=== PATIENT | male | born 1950 | race Caucasian/White ===

== ENCOUNTER 2017-08-21 21:25 | Inpatient (IN) | payer OTHER ==
[~2017-08-21] VITALS: Ht 175.3 cm; Wt 93.1 kg
[2017-08-21] MEDS ORDERED: ASPIRIN 81 MG TAB.CHEW PO ONE (22:00)
[2017-08-21 22:02] LABS: BASO # 0.1 x10^3/uL (0.0-0.2); BASO % 1 % (0-3); EOS # 0.3 x10^3/uL (0.0-0.7); EOS % 4 % (0-3); LYMPH # 2.2 x10^3/uL (1.0-4.8); LYMPH % 26 % (24-48); MEAN CORPUSCULAR HEMOGLOBIN 29 pg (25-35); MEAN CORPUSCULAR HGB CONC 34 g/dL (31-37); MEAN CORPUSCULAR VOLUME 86 fL (79-100); MONO # 0.7 x10^3/uL (0.0-1.1); MONO % 9 % (0-9); NEUT # 5.2 x10^3uL (1.8-7.7); NEUT % 62 % (31-73); PLATELET COUNT 278 x10^3/uL (140-400); RED BLOOD COUNT 4.79 x10^6/uL (4.30-5.70); RED CELL DISTRIBUTION WIDTH 13.8 % (11.5-14.5); WHITE BLOOD COUNT 8.5 x10^3/uL (4.0-11.0)
--- NOTE | 2017-08-21 22:08 | EKG ---
[address] [address] Test Date: 2017-08-21 Test Time: 21:32:24 Pat Name: SABINO PARDO Department: Room: Gender: M [employer]: : 1950 Requested By: JENNIE SPANN Order Number: [id number] Reading MD: Mau Reyes MD Measurements Intervals [place] Rate: 83 P: 25 CA: 152 QRS: 54 QRSD: 112 T: 62 QT: 380 QTc: 452 Interpretive Statements SINUS RHYTHM NON-SPECIFIC ST/T CHANGES Electronically Signed On 08-26-2017 16:09:25 CDT by Mau Reyes MD
[2017-08-21 22:13] LABS: ALBUMIN 3.4 g/dL (3.4-5.0); ALBUMIN/GLOBULIN RATIO 0.8 (1.0-1.7); CALCIUM 9.4 mg/dL (8.5-10.1); CREATININE 1.1 mg/dL (0.7-1.3); TOTAL PROTEIN 7.8 g/dL (6.4-8.2)
[2017-08-21 22:14] LABS: GFR 67.4; POTASSIUM 3.7 mmol/L (3.5-5.1); TOTAL BILIRUBIN 0.3 mg/dL (0.2-1.0)
[2017-08-21] MEDS ORDERED: ONDANSETRON PF 4 MG/2 ML VIAL. IV PRN (23:30)
[2017-08-21] MEDS ORDERED: MORPHINE SULFATE 4 MG/ML DISP.SYRIN. IV PRN (23:30)
[2017-08-21] MEDS ORDERED: NITROGLYCERIN SUBLINGUAL 0.4 MG BOTTLE OF 25. SL PRN (23:30)
[2017-08-22] VITALS (7 sets, daily range): BP systolic 105–167; BP diastolic 57–94
[2017-08-22] MEDS ORDERED: LISI1TAB3 PO (02:40)
[2017-08-22] MEDS ORDERED: OMEP20CA9 PO (02:40)
[2017-08-22] MEDS ORDERED: GLIP10TA PO (02:40)
[2017-08-22] MEDS ORDERED: METF500T9 PO (02:40)
[2017-08-22] MEDS ORDERED: SITA100T PO (02:40)
[2017-08-22] MEDS ORDERED: ATOR20TA58 PO (02:40)
--- NOTE | 2017-08-22 04:03 | PHYS DOC ---
Past History Past Medical History: Diabetes, High Cholesterol, Hypertension Past Surgical History: Other Alcohol Use: None Drug Use: None Adult General Chief Complaint Chief Complaint: CHEST PAIN HPI HPI 66-year-old male with past medical history of hypertension high cholesterol and type 2 diabetes the treatment of which he is compliant with, now presents to the emergency department complaining of chest pain. Patient has never had any prior cardiac evaluation including stress test or cardiac catheterization. He has never seen a traffic manager. Patient reports mid chest pressure over the last 1-2 days which is exertional and associated with mild shortness of breath. No nausea vomiting or diaphoresis. No productive cough or fever. Pain is not reproducible with palpation or movement. Pain-free now Review of Systems Review of Systems Constitutional: Denies fever or chills [] Eyes: Denies change in visual acuity, redness, or eye pain [] HENT: Denies nasal congestion or sore throat [] Respiratory: Denies cough or shortness of breath [] Cardiovascular: No additional information not addressed in HPI [] GI: Denies abdominal pain, nausea, vomiting, bloody stools or diarrhea [] : Denies dysuria or hematuria [] Musculoskeletal: Denies back pain or joint pain [] Integument: Denies rash or skin lesions [] Neurologic: Denies headache, focal weakness or sensory changes [] Endocrine: Denies polyuria or polydipsia [] All other systems were reviewed and found to be within normal limits, except as documented in this note. Current Medications Current Medications Current Medications Medications (Trade) Dose Ordered Sig/[facility] Start Time Stop Time Status Last Admin Dose Admin Aspirin (Children'S Aspirin) 324 mg 1X ONCE 08/21/17 22:00 08/21/17 22:01 DC 08/21/17 21:58 324 MG Allergies Allergies Allergies Coded Allergies Type Severity Reaction Last Updated Verified No Known Drug Allergies 08/21/17 No Physical Exam Physical Exam Constitutional: Well developed, well nourished, no acute distress, non-toxic appearance. [] HENT: Normocephalic, atraumatic, bilateral external ears normal, oropharynx moist, no oral exudates, nose normal. [] Eyes: PERRLA, EOMI, conjunctiva normal, no discharge. [] Neck: Normal range of motion, no tenderness, supple, no stridor. [] Cardiovascular:Heart rate regular rhythm, no murmur [] Lungs & Thorax: Bilateral breath sounds clear to auscultation [] Abdomen: Bowel sounds normal, soft, no tenderness, no masses, no pulsatile masses. [] Skin: Warm, dry, no erythema, no rash. [] Back: No tenderness, no CVA tenderness. [] Extremities: No tenderness, no cyanosis, no clubbing, ROM intact, no edema. [] Neurologic: Alert and oriented X 3, normal motor function, normal sensory function, no focal deficits noted. [] Psychologic: Affect normal, judgement normal, mood normal. [] Current Patient Data Vital Signs Vital Signs Date Time Temp Pulse Resp B/P (MAP) Pulse Ox O2 Delivery O2 Flow Rate FiO2 08/22/17 03:44 82 18 114/64 (81) 99 Room Air 08/22/17 00:45 97.0 Lab Results Laboratory Tests Test 08/21/17 21:47 White Blood Count 8.5 x10^3/uL (4.0-11.0) Red Blood Count 4.79 x10^6/uL (4.30-5.70) Hemoglobin 14.0 g/dL (13.0-17.5) Hematocrit 41.0 % (39.0-53.0) Mean Corpuscular Volume 86 fL (79-100) Mean Corpuscular Hemoglobin 29 pg (25-35) Mean Corpuscular Hemoglobin Concent 34 g/dL (31-37) Red Cell Distribution Width 13.8 % (11.5-14.5) Platelet Count 278 x10^3/uL (140-400) Neutrophils (%) (Auto) 62 % (31-73) Lymphocytes (%) (Auto) 26 % (24-48) Monocytes (%) (Auto) 9 % (0-9) Eosinophils (%) (Auto) 4 % (0-3) H Basophils (%) (Auto) 1 % (0-3) Neutrophils # (Auto) 5.2 x10^3uL (1.8-7.7) Lymphocytes # (Auto) 2.2 x10^3/uL (1.0-4.8) Monocytes # (Auto) 0.7 x10^3/uL (0.0-1.1) Eosinophils # (Auto) 0.3 x10^3/uL (0.0-0.7) Basophils # (Auto) 0.1 x10^3/uL (0.0-0.2) Sodium Level 140 mmol/L (136-145) Potassium Level 3.7 mmol/L (3.5-5.1) Chloride Level 102 mmol/L (98-107) Carbon Dioxide Level 27 mmol/L (21-32) Anion Gap 11 (6-14) Blood Urea Nitrogen 16 mg/dL (8-26) Creatinine 1.1 mg/dL (0.7-1.3) Estimated GFR (Cockcroft-Gault) 67.4 BUN/Creatinine Ratio 15 (6-20) Glucose Level 187 mg/dL (70-99) H Calcium Level 9.4 mg/dL (8.5-10.1) Total Bilirubin 0.3 mg/dL (0.2-1.0) Aspartate Amino Transferase (AST) 15 U/L (15-37) Alanine Aminotransferase (ALT) 35 U/L (16-63) Alkaline Phosphatase 112 U/L (46-116) Troponin I Quantitative 0.019 ng/mL (0-0.055) Total Protein 7.8 g/dL (6.4-8.2) Albumin 3.4 g/dL (3.4-5.0) Albumin/Globulin Ratio 0.8 (1.0-1.7) L EKG EKG EKG with normal sinus rhythm at 83 normal axis no STEMI interpreted by me Radiology/Procedures Radiology/Procedures Chest x-ray with chronic changes no acute disease no infiltrate or effusion interpreted by me[] Course & Med Decision Making Course & Med Decision Making Pertinent Labs and Imaging studies reviewed. (See chart for details) Signs and symptoms consistent with chest pain of suspected cardiac etiology. Patient pain-free and comfortable appearing. Aspirin given. Workup unremarkable including chest x-ray EKG and labs. Patient stable on multiple re-evaluations. Case discussed with Dr. Moreno hospitalist on-call is aware the history and findings and agrees with inpatient admission to his service [] Dragon Disclaimer Dragon Disclaimer This electronic medical record was generated, in whole or in part, using a voice recognition dictation system. Departure Departure: Impression: Primary Impression: Chest pain Disposition: ADMITTED INPATIENT Admitting Physician: Greg Moreno Condition: GOOD Referrals: ARNALDO SIMON (PCP) JENNIE SPANN MD Aug 22, 2017 04:03
[2017-08-22 04:20] LABS: BASO # 0.1 x10^3/uL (0.0-0.2); BASO % 1 % (0-3); EOS # 0.3 x10^3/uL (0.0-0.7); EOS % 4 % (0-3); HEMATOCRIT 37.7 % (39.0-53.0); HEMOGLOBIN 12.8 g/dL (13.0-17.5); LYMPH # 2.2 x10^3/uL (1.0-4.8); LYMPH % 30 % (24-48); MEAN CORPUSCULAR HEMOGLOBIN 29 pg (25-35); MEAN CORPUSCULAR HGB CONC 34 g/dL (31-37); MEAN CORPUSCULAR VOLUME 86 fL (79-100); MONO # 0.6 x10^3/uL (0.0-1.1); MONO % 9 % (0-9); NEUT # 4.1 x10^3uL (1.8-7.7); NEUT % 56 % (31-73); PLATELET COUNT 234 x10^3/uL (140-400); RED BLOOD COUNT 4.39 x10^6/uL (4.30-5.70); RED CELL DISTRIBUTION WIDTH 13.8 % (11.5-14.5); WHITE BLOOD COUNT 7.3 x10^3/uL (4.0-11.0)
[2017-08-22 04:31] LABS: CALCIUM 8.7 mg/dL (8.5-10.1); GFR 75.2; POTASSIUM 3.4 mmol/L (3.5-5.1)
[2017-08-22] MEDS ORDERED: POTASSIUM CHLORIDE 20 MEQ TABLET.ER. PO ONE (07:45)
--- NOTE | 2017-08-22 08:08 | RAD ---
Portable chest, 08/21/2017: History: Chest pain The heart size and pulmonary vascularity are normal. There is mild tortuosity of the thoracic aorta. No pulmonary infiltrate is seen. There is no evidence of pleural fluid. IMPRESSION: No acute cardiopulmonary abnormality is detected.
[2017-08-22] MEDS: LISINOPRIL 10 MG TABLET PO SCH (08:19)
[2017-08-22] MEDS: hydroCHLOROthiazide 12.5 MG CAPSULE PO SCH (08:19)
[2017-08-22] MEDS: LINAGLIPTIN 5 MG TABLET PO SCH (08:19)
[2017-08-22] MEDS: ATORVASTATIN CALCIUM 20 MG TABLET PO SCH (08:19)
[2017-08-22] MEDS ORDERED: metFORMIN XR 500 MG TAB.ER.24H PO SCH (09:00)
[2017-08-22] MEDS ORDERED: DEXTROSE 50% 25 GM / 50ML DISP.SYRIN. IV PRN (12:30)
--- NOTE | 2017-08-22 12:30 | HP ---
ADMIT DATE: 08/22/2017 HISTORY OF PRESENT ILLNESS: The patient is a 66-year-old male patient, who came to the Emergency Room complaining of recurrent episode of chest pain started about 3 weeks ago. Most time the pain comes when he is exerting himself, has never had any prior cardiac evaluation including stress test or cardiac catheterization. The chest pain lasts anything between 5-15 minutes, associated with exertion. Did complain of shortness of breath, but no nausea, no vomiting, no diaphoresis. No radiation. Recently the pain also comes at rest, therefore the patient came to the Emergency Room, was evaluated. His cardiac enzyme was slightly elevated at 0.019. His EKG showed he was in sinus rhythm at 83 beats per minute, no ST segment elevation or depression. The patient was admitted to the hospital to do 2 more sets of cardiac enzyme and check his lipid profile as well as consult the cardiology team for further evaluation and treatment. PAST MEDICAL HISTORY: Significant for type 2 diabetes mellitus, hypertension and hyperlipidemia. PAST SURGICAL HISTORY: Significant for bilateral cataract extraction, hernia repair and colonoscopy. ALLERGIES: He has no known drug allergies. MEDICATIONS: He is currently on following medications: Atorvastatin calcium 20 mg daily, lisinopril/hydrochlorothiazide 10/12.5 mg once a day, omeprazole 20 mg once a day, metformin 500 mg daily, sitagliptin phosphate 100 mg daily and glipizide 10 mg extended release 1 tablet daily. FAMILY HISTORY: He has two sisters and one brother. Older sister of stomach cancer. His younger brother of pneumonia and myocardial infarction. His younger sister is known to have coronary artery disease. His father at the age of 52 because of myocardial infarction. Mother at the age of 40 because of diabetes and gangrenous infection. SOCIAL HISTORY: He is , has 2 sons and 4 daughters. He quit smoking about 8 years ago. He does not drink alcohol or use any recreational drugs. 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 REVIEW OF SYSTEMS: The patient has bilateral hearing aid, underwent bilateral cataract extraction. Denied any nosebleeds, stuffy nose or postnasal drip. Denied any sore throat, sore tongue, toothache, hoarseness of voice or difficulty swallowing. Denied any nausea, vomiting, diarrhea or constipation. Denied any hematemesis, melena or hematochezia. Denied any dysuria, frequency or hematuria. He did complain of chest pain and shortness of breath. Denied any orthopnea or paroxysmal dyspnea. Denied any cough, phlegm or hemoptysis. Denied chills, rigors or fever. PHYSICAL EXAMINATION: GENERAL: On examining him, he looked well and was clearly in no apparent respiratory distress, no pallor, jaundice, cyanosis, or thyromegaly. No jugular venous distension. No lower limb edema. VITAL SIGNS: His heart rate was 86, blood pressure 125/75, temperature was 97.9, respiratory rate was 18 and oxygen saturation was 96%. HEAD, EYES, EARS, NOSE AND THROAT: Showed normocephalic, atraumatic. NECK: Supple. HEART: Showed normal first and second heart sounds with no gallop, rub or murmur. CHEST: Clear to auscultation. No crepitation or rhonchi. ABDOMEN: Distended, soft, nontender. No guarding or rigidity. No organomegaly. All hernial orifice intact. Bowel sounds normal. NEUROLOGIC: He was awake, alert, hard of hearing, but all other cranial nerves are intact. EXTREMITIES: He moves extremities without difficulty, ambulates without assistance or assistive devices. LABORATORY DATA: On admission showed a white cell count of 8500, hemoglobin 14, hematocrit 41, MCV 86 and platelet count 278,000. His serum sodium was 140, potassium 3.7, chloride 102, bicarbonate 27, anion gap of 11, BUN 16, creatinine 1.1, estimated GFR was 67 mL per minute. His glucose was 187, calcium was 9.4. Total bilirubin, AST, ALT, alkaline phosphatase are normal. His total protein was 7.8, albumin was 3.4. IMPRESSION AND PLAN: In summary, this is a 66-year-old was admitted with recurrent episode of mostly exertional chest pain. First set of cardiac enzyme showed that the troponin to be less than 0.019. Will have 2 more sets of cardiac enzymes, check his fasting lipid profile and consult the charging plug placer. MARA MONTEMAYOR MD DR: ERAN/roge JOB#: [id number] / [id number]
[2017-08-22] MEDS: INSULIN ASPART 300 UNITS/3 ML INSULN.PEN SQ SCH (12:50)
--- NOTE | 2017-08-22 22:18 | PN ---
DATE: 08/22/2017 SUBJECTIVE: The patient is resting, slightly propped up in bed, in no apparent respiratory distress. On questioning him, he denied any further episode of chest pain or shortness of breath. The patient has 3 sets of cardiac enzymes, which probably ruled out myocardial infarction. His EKG was unremarkable and the plan is to wait for the Cardiology evaluation, did have an echocardiogram, the result of which is still pending. PHYSICAL EXAMINATION: GENERAL: When I examined him today, he looked well and was clearly in no apparent respiratory distress. He was pale, but no jaundice, cyanosis, or thyromegaly. No jugular venous distension. No limb edema. VITAL SIGNS: His heart rate was 86, blood pressure 136/60, temperature was 97.9, respiratory rate was 16, and oxygen saturation was 95%. The rest of clinical examination is unremarkable, has not really changed. PLAN: We will again check his fasting lipid profile and await cardiology evaluation. MARA MONTEMAYOR MD DR: ERAN/roge JOB#: [id number] / [id number]
[2017-08-23 04:09] LABS: HEMOGLOBIN A1C 7.6 % (4.8-5.6)
[2017-08-23 05:15] VITALS: BP 130/70
[2017-08-23] MEDS ORDERED: PANTOPRAZOLE 40 MG TABLET. PO SCH (07:30)
[2017-08-23] MEDS ORDERED: REGADENOSON 0.4 MG/5 ML DISP.SYRIN. IV ONE (07:30)
[2017-08-23] MEDS: INSULIN ASPART 300 UNITS/3 ML INSULN.PEN SQ SCH ×2 (08:00→12:00)
[2017-08-23] MEDS: ATORVASTATIN CALCIUM 20 MG TABLET PO SCH (09:00)
[2017-08-23] MEDS: hydroCHLOROthiazide 12.5 MG CAPSULE PO SCH (09:04)
[2017-08-23] MEDS: LINAGLIPTIN 5 MG TABLET PO SCH (09:04)
[2017-08-23] MEDS: LISINOPRIL 10 MG TABLET PO SCH (09:04)
[2017-08-23] MEDS ORDERED: NITROGLYCERIN SUBLINGUAL 0.4 MG BOTTLE OF 25. SL ONE (09:11)
[2017-08-23 10:31] VITALS: BP 143/82
--- NOTE | 2017-08-23 13:08 | RAD ---
MR#: [id number] Date of Study: 08/23/2017 Ordering Physician: MARA MONTEMAYOR, Referring Physician: JS DE LA ROSA Tech: RT Elizabeth DawkinsR) (N) APPROVED REPORT Test Type: Pharmacological Stress Nurse/Tech: RT Mariza (Rosendo) (N) Test Indications: chest pain Cardiac History: none Medications: see EHR Medical History: see EHR Resting Heart Rate: 76 bpm Resting Blood Pressure: 131/76mmHg Pretest Chest Pain: None Nurse/Tech Notes Dr. Rose was present for stress test Consent: The procedure was explained to the patient in lay terms. Informed consent was witnessed. Madhu eout was entered into [employer]. History and Stress Test performed by RT Mariza (R) (N) Pharm. Details Pharmacologic stress testing was performed using 0.4mg per 5ml of regadenoson given intravenously ove r 7-10 seconds. POST EXERCISE Max HR: 117 bpm Max Blood Pressure: 149/82mmHg Chest Pain: Yes. INTERPRETATION Stress EKG Conclusion: No evidence of stress induced EKG changes. Imaging Protocol IMAGE PROTOCOL: Rest Tc-99m/stress Tc-99m 1 day Rest: Stress: Viability: Radiopharm.Tc99m [id number] Sestamibi Dose11.5mCi 34mCi Duration 20min. 15min. Img Date 08/23/2017 08/23/2017 Inj-Img Cllu77tem. 60min. Rest Admin Site:IV - Left AntecubitalAdministrator: RT Mariza (R)(N) Stress Admin Site: IV - Left AntecubitalAdministrator: RT Mariza (Rosendo)(N) STRESS DATA End Diast. Vol.116.0mlAv. Heart Rate87.0bpm LVEDV index BSA2.0mlCardiac Output0.1L/min End Syst. Vol.48.0mlCO Index BSA5.9L/min LVESV index BSA1.0mlMyocardial Kmhn903.0g Eject. Yrahjlsj10.0% Stress Rates Pk. Fill Rate2.15EDV/secLVtime Pk. Fill 185.40msec Pk. Empty Rate2.72ESV/secLVtime Pk. Stuip152.42msec 1/3 Pk. Fill1.39EDV/sec Stress Scores Regional WT2.00Summed WT17.00 Regional WM0.00Summed WM6.00 LV Perfusion There is a moderate sized, moderate in intensity mostly lateral and fully reversible defect suggestiv e of impaired perfusion reserve. Wall Motion Normal wall motion. LV Perf. Quant 17 Seg. SSS9.00 17 Seg. SRS0.00 17 Seg. SDS9.00 Stress Defect Extent (% LAD)0.00Rest Defect Extent (% LAD)0.00Rev. Defect Extent (% LAD)0.00 Stress Defect Extent (% LCX) 63.80Rest Defect Extent (% LCX)0.00Rev. Defect Extent (% LCX)63.80 Stress Defect Extent (% RCA)0.00Rest Defect Extent (% RCA)0.00Rev. Defect Extent (% RCA)0.00 Stress Defect Extent (% MONY)12.80Rest Defect Extent (% MONY)0.00Rev. Defect Extent (% MONY)12.80 Other Information Quality:Average Risk Assessment: Moderate Risk Conclusion 1. No evidence of stress induced EKG changes. 2. Moderate lateral wall reversilbe defect - may be related to motion artifact. EF 59% 3. Motion artifact. 4. Moderate risk study. Signed by : Mau Reyes, Electronically Approved : 08/23/2017 13:07:34
--- NOTE | 2017-08-23 13:17 | PDOC2 ---
CONSULT Date of Admission DATE: 08/23/17 TIME: 13:16 Reason for Consult: cp Problem List Problems Medical Problems: (1) Chest pain Status: Acute History of Present Illness Mr Krueger is a 66-year-old male with a past medical history of hypertension, high cholesterol and type 2 diabetes. HE presented to the ED with complaints of chest pressure intermittently over the last couple days. He reports pain worse with exertion, better with rest and with associated dyspnea. he denies radiation, diaphoresis, nausea or vomiting. he denies recent illness, cough, fever or chills. he denies palpitations, congestive symptoms, lightheadedness or syncope. He denies any prior cardiac symptoms or evaluation. Past Medical History diabetes mellitus type 2, hypertension, hyperlipidemia. Past Surgical History bilateral cataract extraction, hernia repair, colonoscopy. Family History stomach cancer premature coronary disease in his father, at age 52, younger sister and 1 younger brother with [address]. His mother in her 40s due to complications from diabetes. Social History prior smoker, quit 8 years ago, no significant ETOH, no illicit drugs. 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 Current Medications Current Medications Aspirin (Children'S Aspirin) 324 mg 1X ONCE PO Last administered on 08/21/17at 21:58; Start 08/21/17 at 22:00; Stop 08/21/17 at 22:01; Status DC Ondansetron HCl (Zofran) 4 mg PRN Q4HRS PRN IV NAUSEA/VOMITING; Start 08/21/17 at 23:30; Stop 08/22/17 at 23:29; Status DC Morphine Sulfate (Morphine 4mg Syringe) 4 mg PRN Q2HR PRN IV PAIN; Start at 23:30; Stop 08/22/17 at 23:29; Status DC Nitroglycerin (Nitrostat) 0.4 mg PRN Q5MIN PRN SL CHEST PAIN; Start 08/21/17 at 23:30; Stop 08/22/17 at 23:29; Status DC Potassium Chloride (Klor-Con) 40 meq 1X ONCE PO Last administered on at 08:19; Start 08/22/17 at 07:45; Stop 08/22/17 at 07:46; Status DC Atorvastatin Calcium (Lipitor) 20 mg DAILY PO Last administered on 08/22/17at 08 :19; Start 08/22/17 at 09:00 Metformin HCl (Glucophage Xr) 500 mg DAILY PO Last administered on 08/22/17at 08 :20; Start 08/22/17 at 09:00; Stop 08/22/17 at 12:16; Status DC Glipizide (Glucotrol Er) 10 mg DAILY08 PO Last administered on 08/23/17at 09:04 ; Start 08/22/17 at 08:00 Lisinopril (Prinivil) 10 mg DAILY PO Last administered on 08/23/17at 09:04; Start 08/22/17 at 09:00 Pantoprazole Sodium (Protonix) 40 mg DAILYAC PO Last administered on 08/23/17at 09:04; Start 08/23/17 at 07:30 Linagliptin (Tradjenta) 5 mg DAILY PO Last administered on 08/23/17at 09:04; Start 08/22/17 at 09:00 Hydrochlorothiazide (Microzide) 12.5 mg DAILY PO Last administered on at 09:04; Start 08/22/17 at 09:00 Insulin Aspart (NovoLOG) 0-7 UNITS TIDWMEALS SQ Last administered on 08/23/17at 12:00; Start 08/22/17 at 17:00 Dextrose 12.5 gm PRN Q15MIN PRN IV SEE COMMENTS; Start 08/22/17 at 12:30 Regadenoson (Lexiscan) 0.4 mg 1X ONCE IV Last administered on 08/23/17at 08:57 ; Start 08/23/17 at 07:30; Stop 08/23/17 at 07:36; Status DC Nitroglycerin (Nitrostat) 0.4 mg STK-MED ONCE SL ; Start 08/23/17 at 09:11; Stop 08/23/17 at 09:12; Status DC Active Scripts Active Reported Atorvastatin Calcium 20 Mg Tablet 1 Tab PO DAILY Omeprazole 20 Mg Capsule.dr 1 Cap PO DAILY Glucotrol Xl (Glipizide) 10 Mg Tab.er.24 1 Tab PO DAILY Lisinopril-Hctz 10-12.5 Mg Tab (Lisinopril/Hydrochlorothiazide) 1 Each Tablet 1 Tab PO DAILY Januvia (Sitagliptin Phosphate) 100 Mg Tablet 1 Tab PO DAILY Metformin Hcl Er (Metformin Hcl) 500 Mg Tab.er.24h 1 Tab PO DAILY Allergies: Coded Allergies: No Known Drug Allergies (Unverified , 08/21/17) Review of System as per HPI General: Alert, Oriented X3, Cooperative, No acute distress HEENT: Atraumatic, EOMI Lungs: Clear to auscultation, Normal air movement Heart: Regular rate, Normal S1, Normal S2 Abdomen: Normal bowel sounds, Soft, No tenderness Extremities: No cyanosis, Normal pulses Neuro: Normal speech, Strength at 5/5 X4 ext Psych/Mental Status: Mental status NL, Mood NL VITALS Vital Signs Date Time Temp Pulse Resp B/P (MAP) Pulse Ox O2 Delivery O2 Flow Rate FiO2 08/23/17 10:31 97.7 92 20 143/82 (102) 95 Room Air Labs Laboratory Tests Test 08/21/17 21:47 08/22/17 01:00 08/22/17 03:55 08/22/17 07:47 White Blood Count 8.5 x10^3/uL (4.0-11.0) 7.3 x10^3/uL (4.0-11.0) Red Blood Count 4.79 x10^6/uL (4.30-5.70) 4.39 x10^6/uL (4.30-5.70) Hemoglobin 14.0 g/dL (13.0-17.5) 12.8 g/dL (13.0-17.5) Hematocrit 41.0 % (39.0-53.0) 37.7 % (39.0-53.0) Mean Corpuscular Volume 86 fL (79-100) 86 fL (79-100) Mean Corpuscular Hemoglobin 29 pg (25-35) 29 pg (25-35) Mean Corpuscular Hemoglobin Concent 34 g/dL (31-37) 34 g/dL (31-37) Red Cell Distribution Width 13.8 % (11.5-14.5) 13.8 % (11.5-14.5) Platelet Count 278 x10^3/uL (140-400) 234 x10^3/uL (140-400) Neutrophils (%) (Auto) 62 % (31-73) 56 % (31-73) Lymphocytes (%) (Auto) 26 % (24-48) 30 % (24-48) Monocytes (%) (Auto) 9 % (0-9) 9 % (0-9) Eosinophils (%) (Auto) 4 % (0-3) 4 % (0-3) Basophils (%) (Auto) 1 % (0-3) 1 % (0-3) Neutrophils # (Auto) 5.2 x10^3uL (1.8-7.7) 4.1 x10^3uL (1.8-7.7) Lymphocytes # (Auto) 2.2 x10^3/uL (1.0-4.8) 2.2 x10^3/uL (1.0-4.8) Monocytes # (Auto) 0.7 x10^3/uL (0.0-1.1) 0.6 x10^3/uL (0.0-1.1) Eosinophils # (Auto) 0.3 x10^3/uL (0.0-0.7) 0.3 x10^3/uL (0.0-0.7) Basophils # (Auto) 0.1 x10^3/uL (0.0-0.2) 0.1 x10^3/uL (0.0-0.2) Sodium Level 140 mmol/L (136-145) 138 mmol/L (136-145) Potassium Level 3.7 mmol/L (3.5-5.1) 3.4 mmol/L (3.5-5.1) Chloride Level 102 mmol/L (98-107) 103 mmol/L (98-107) Carbon Dioxide Level 27 mmol/L (21-32) 25 mmol/L (21-32) Anion Gap 11 (6-14) 10 (6-14) Blood Urea Nitrogen 16 mg/dL (8-26) 16 mg/dL (8-26) Creatinine 1.1 mg/dL (0.7-1.3) 1.0 mg/dL (0.7-1.3) Estimated GFR (Cockcroft-Gault) 67.4 75.2 BUN/Creatinine Ratio 15 (6-20) Glucose Level 187 mg/dL (70-99) 286 mg/dL (70-99) Calcium Level 9.4 mg/dL (8.5-10.1) 8.7 mg/dL (8.5-10.1) Total Bilirubin 0.3 mg/dL (0.2-1.0) Aspartate Amino Transf (AST/SGOT) 15 U/L (15-37) Alanine Aminotransferase (ALT/SGPT) 35 U/L (16-63) Alkaline Phosphatase 112 U/L (46-116) Troponin I Quantitative 0.019 ng/mL (0-0.055) 0.023 ng/mL (0-0.055) Total Protein 7.8 g/dL (6.4-8.2) Albumin 3.4 g/dL (3.4-5.0) Albumin/Globulin Ratio 0.8 (1.0-1.7) Nasal Screen MRSA (PCR) Negative (Negative) Hemoglobin A1c 7.6 % (4.8-5.6) Triglycerides Level 147 mg/dL (0-150) Cholesterol Level 102 mg/dL (0-200) LDL Cholesterol, Calculated 45 mg/dL (0-100) VLDL Cholesterol, Calculated 29 mg/dL (0-40) Non-HDL Cholesterol Calculated 74 mg/dL (0-129) HDL Cholesterol 28 mg/dL (40-60) Cholesterol/HDL Ratio 3.0 Glucose (Fingerstick) 221 mg/dL (70-99) Test 08/22/17 09:53 08/22/17 11:34 08/22/17 13:19 08/22/17 16:56 Troponin I Quantitative 0.018 ng/mL (0-0.055) Glucose (Fingerstick) 291 mg/dL (70-99) 178 mg/dL (70-99) 108 mg/dL (70-99) Test 08/22/17 19:47 08/23/17 08:58 08/23/17 11:57 Glucose (Fingerstick) 179 mg/dL (70-99) 177 mg/dL (70-99) 337 mg/dL (70-99) Images EKG sinus rhythm with non specific changes Assessment/Plan 1. chest pain consistent with exertional angina - Troponin mildly elevated but remains in the indeterminate range, no acute ischemic changes on EKG. Await echo and MPI this am. 2. hypertension - controlled on current medical therapy. 3. hyperlipidemia - continue statin therapy, check lipids. Await MPI results and if abnormal plan for cardiac cath. Problems: JANINE CHISHOLM SPLICER HELPER Aug 23, 2017 13:17
[2017-08-23 14:34] VITALS: BP 137/78
--- NOTE | 2017-08-23 21:38 | DS ---
DATE OF DISCHARGE: 08/23/2017 HISTORY OF PRESENT ILLNESS: The patient is a 66-year-old male patient who came to the hospital with a complaint of chest pain that has been going on for a month associated with exertion and most of the pain comes when he is exerting himself and has never had any prior cardiac evaluation including stress test or cardiac catheterization and basically was admitted to the Emergency Room, has had 3 sets of cardiac enzymes that were negative. His EKG showed that he was in sinus rhythm with no ST segment elevation or depression. He underwent nuclear stress test, which basically showed that there is a moderate size, moderate intensity, mostly lateral and fully reversible defect suggestive of impaired perfusion reserve and as did Dr. Stinson's recommendation, the patient will be [facility] with a view of cardiac catheterization tomorrow or not feasible Saturday. PHYSICAL EXAMINATION: GENERAL: When I examined him today, he looked well and was clearly in no apparent respiratory distress, pale, but no jaundice or cyanosis. No lymphadenopathy or thyromegaly. No jugular venous distension. No limb edema. VITAL SIGNS: His heart rate was 92, blood pressure was 143/82, temperature was 97.7, respiratory rate 20, and oxygen saturation was 95%. HEAD, EYES, EARS, NOSE AND THROAT: Normocephalic, atraumatic. NECK: Supple. HEART: Showed normal first and second heart sounds with no gallop, rub or murmur. CHEST: Clear to auscultation. No crepitation or rhonchi. ABDOMEN: Distended, soft, nontender. No guarding or rigidity. No organomegaly. Hernial orifices intact. Bowel sounds normal. NEUROLOGICAL: He was awake, alert, responding appropriately. Cranial nerves intact. EXTREMITIES: Intact. He moves his extremities without difficulty, ambulates without assistance or assistive devices. His intake was 1360 and output not recorded. LABORATORY DATA: As of this morning showed a white cell count of 7300, hemoglobin 13, hematocrit 38, MCV 86, and platelet count of 234,000. His chemistry showed that his serum sodium 138, potassium 3.4, chloride 103, bicarbonate 25, anion gap of 10, BUN 16, creatinine 1, estimated GFR was 75 mL per minute. His hemoglobin A1c was 7.6, and his fasting lipid profile showed serum triglycerides 147, cholesterol 102, LDL was 45, VLDL was 29, HDL was 28, cholesterol ratio 3. DISCHARGE MEDICATIONS: [facility] will be [facility] to continue atorvastatin calcium 20 mg once a day, glipizide, Glucotrol-XL 10 mg daily, lisinopril/hydrochlorothiazide 10/12.5 mg daily, omeprazole 20 mg daily, sitagliptin phosphate, Januvia 100 mg once a day. I held his metformin as he probably did undergo cardiac catheterization tomorrow. FINAL DISCHARGE DIAGNOSES: 1. Unstable angina. 2. Type 2 diabetes. 3. Hypertension. 4. Hyperlipidemia. 5. Positive stress test. MARA MONTEMAYOR MD DR: ERAN/roge JOB#: [id number] / [id number]
== END 2017-08-23 15:14 | disposition short-term general hospital (02) | DRG 311 ==
LOC: ER 21:25 → ICU 23:20 → 1 SOUTH 08-22 15:51
PROVIDERS: ADMIT Internal Medicine; ATTEND Internal Medicine
DX: I20.0 Unstable angina (principal); E11.9 Type 2 diabetes mellitus without complications; E78.5 Hyperlipidemia, unspecified; I10 Essential (primary) hypertension; Z80.0 Family history of malignant neoplasm of digestive organs; Z82.49 Family history of ischemic heart disease and other diseases of the circulatory system; Z83.3 Family history of diabetes mellitus; Z87.891 Personal history of nicotine dependence; Z98.41 Cataract extraction status, right eye; Z98.42 Cataract extraction status, left eye
CPT/HCPCS: 36415; 71045; 78452; 80048; 80053; 80061; 82947; 83036; 84484; 85025; 87641; 93005; 93017; 93306; 96374; 96375; 96376; A9500; J1815; J2785

== ENCOUNTER 2017-11-28 11:15 | Emergency (ER) | payer MEDICARE, OTHER ==
[~2017-11-28] VITALS: Ht 175.3 cm; Wt 89.4 kg
[~2017-11-28 11:15] MED LIST: ATOR20TA58 PO; GLIP10TA PO; LISI1TAB3 PO; METF500T9 PO; OMEP20CA9 PO; SITA100T PO
[2017-11-28] MEDS ORDERED: IV NORMAL SALINE 1,000ML 1,000 ML IV SCH (11:29)
--- NOTE | 2017-11-28 11:35 | PHYS DOC ---
Past History Past Medical History: CAD, Diabetes, High Cholesterol, Hypertension Past Surgical History: Coronary Bypass Surgery, Other Smoking: Quit Greater Than 1 Year Alcohol Use: None Drug Use: None Adult General Chief Complaint Chief Complaint: ABDOMINAL PAIN HPI HPI Patient is a 67-year-old male who presents to the emergency department for evaluation. He states last night he developed some mild right lower quadrant abdominal pain which gradually worsened, associated with nausea. The pain also moved to his central abdomen. He states that this morning he awoke and was feeling significantly better, although he did have some mild back pain this morning. He states his pain is also completely resolved. He has not had any anorexia, fevers, chills, vomiting, diarrhea, black or bloody urine, or flank pain. There are no alleviating, or exacerbating factors to his symptoms. He states he has had some similar, less intense pain in the past, although he cannot associated with any particular activity, including eating any specific types of foods. He states he did take some Pepto-Bismol this morning which did help his pain improved somewhat. The patient did have a CABG this past August, and is currently in cardiac rehabilitation. He states he has been recovering well. Review of Systems Review of Systems Constitutional: Denies fever or chills [] Eyes: Denies change in visual acuity, redness, or eye pain [] HENT: Denies nasal congestion or sore throat [] Respiratory: Denies cough or shortness of breath [] Cardiovascular: The patient denies any shortness of breath, chest pain, palpitations, or orthopnea [] GI: As per history of present illness[] : Denies dysuria or hematuria [] Musculoskeletal: Denies back pain or joint pain [] Integument: Denies rash or skin lesions [] Neurologic: Denies headache, focal weakness or sensory changes [] Endocrine: Denies polyuria or polydipsia [] All other systems were reviewed and found to be within normal limits, except as documented in this note. Current Medications Current Medications Current Medications Medications (Trade) Dose Ordered Sig/Wyatt Start Time Stop Time Status Last Admin Dose Admin Ondansetron HCl (Zofran) 4 mg 1X ONCE 11/28/17 11:30 11/28/17 11:31 UNV Sodium Chloride 1,000 ml @ 100 mls/hr Q10H 11/28/17 11:29 11/28/17 21:28 UNV Allergies Allergies Allergies Coded Allergies Type Severity Reaction Last Updated Verified No Known Drug Allergies 08/21/17 No Physical Exam Physical Exam PHYSICAL EXAM: CONSTITUTIONAL: Well developed, well nourished HEAD: normocephalic, atraumatic EENT: PERRL, EOMI. Conjunctivae normal color, sclerae non-icteric; moist mucous membranes. NECK: Supple, non-tender; no meningismus. LUNGS: Lungs CTA, breathing even and unlabored. Normal air movement. HEART: Regular rate and rhythm, no murmur CHEST: No deformity; non-tender ABDOMEN: The abdomen is soft, there is focal RIGHT UPPER QUADRANT tenderness, with an equal focal Cordova sign, the remainder the abdomen soft and non-tender, there is no focal right lower quadrant tenderness to palpation, normal bowel sounds are present, there is no rebound or guarding, no masses or bruits. EXTREM: Normal ROM; no deformity, no calf tenderness. Normal pulses palpable in all extremities. There is no pedal edema. SKIN: No rash; no diaphoresis NEURO: Alert; normal speech and cognition; CN's grossly intact; strength grossly intact without focal deficit. BACK: No CVA TTP. EKG EKG [Initial EKG done at 1144 shows normal sinus rhythm a rate of 76 beats for minute, normal axis, normal intervals, there are subtle inferior elevation of the ST segments in lead III and aVF, with lateral T wave inversion in the limb leads. This is more pronounced on the patient's only available postoperative EKG , from 08/29 at [facility]. A repeat EKG at 12:31 PM is unchanged , without progression or resolution of the ST changes.] Radiology/Procedures Radiology/Procedures [PROCEDURE: ABDOMEN LTD LIMITED ABDOMINAL ULTRASOUND History: Right upper quadrant pain. Patient ate at 0800 hours. Comparison: None. Procedure: Transabdominal ultrasound images are obtained. Findings: Visualized pancreas is unremarkable. Liver is mildly increased in echogenicity. No focal hepatic masses are identified. Right hepatic lobe measures 18.4 cm in length. Gallbladder demonstrates cholelithiasis. Gallbladder sludge is also seen. No pericholecystic fluid is identified. Gallbladder wall is borderline thickened at 4 mm. Common bile duct measures normally at 4 mm in diameter. Right kidney measures 11.3 cm in length. There is no evidence of stone or hydronephrosis. Visualized IVC demonstrates normal caliber. Impression: 1. Cholelithiasis and gallbladder sludge. No pericholecystic fluid is identified. The gallbladder wall is borderline thickened, although this may be artifact of patient not being NPO. Significant concern for acute cholecystitis, nuclear medicine hepatobiliary scan could be performed. 2. Echogenic, enlarged liver, compatible with fatty liver disease. ] Course & Med Decision Making Course & Med Decision Making Pertinent Labs and Imaging studies reviewed. (See chart for details) [12:15 PM I did speak with the patient's outside sales consultant, was at this facility today, who reviewed the abnormal EKG. The patient is not really having symptoms suggestive of an acute coronary occlusion although his EKG is concerning. The patient's outside sales consultant will come and evaluate the patient.] 1:15 PM: The patient's condition remained stable. Given the abnormality on the gallbladder, the patient might have chronic cholecystitis, with an acute exacerbation. The patient's outside sales consultant did want the patient observed to have his enzymes trended, although his symptoms are atypical for acute coronary syndrome. Thus, the patient be transferred to [facility], and the hospitalist there will admit the patient. Cardiology and general surgical consultations will be obtained at that facility. Dragon Disclaimer Dragon Disclaimer This electronic medical record was generated, in whole or in part, using a voice recognition dictation system. Departure Departure: Impression: Primary Impression: Cholecystitis Additional Impressions: Abnormal EKG CAD (coronary artery disease) Disposition: 02 XFER SHT-TRM HOSP Condition: STABLE Referrals: ARNALDO SIMON (PCP) Problem Qualifiers TANIA ROMERO MD Nov 28, 2017 11:35
--- NOTE | 2017-11-28 11:48 | EKG ---
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
[2017-11-28 11:49] LABS: BASO # 0.1 x10^3/uL (0.0-0.2); BASO % 1 % (0-3); EOS # 0.3 x10^3/uL (0.0-0.7); EOS % 4 % (0-3); HEMATOCRIT 39.3 % (39.0-53.0); HEMOGLOBIN 13.1 g/dL (13.0-17.5); LYMPH # 1.2 x10^3/uL (1.0-4.8); LYMPH % 14 % (24-48); MEAN CORPUSCULAR HEMOGLOBIN 28 pg (25-35); MEAN CORPUSCULAR HGB CONC 33 g/dL (31-37); MEAN CORPUSCULAR VOLUME 85 fL (79-100); MONO # 0.5 x10^3/uL (0.0-1.1); MONO % 6 % (0-9); NEUT # 6.5 x10^3uL (1.8-7.7); NEUT % 76 % (31-73); PLATELET COUNT 238 x10^3/uL (140-400); RED BLOOD COUNT 4.62 x10^6/uL (4.30-5.70); RED CELL DISTRIBUTION WIDTH 15.8 % (11.5-14.5); WHITE BLOOD COUNT 8.5 x10^3/uL (4.0-11.0)
[2017-11-28] MEDS ORDERED: ONDANSETRON PF 4 MG/2 ML VIAL. IV ONE (12:00)
[2017-11-28 12:07] LABS: ALBUMIN 3.3 g/dL (3.4-5.0); ALBUMIN/GLOBULIN RATIO 0.8 (1.0-1.7); CALCIUM 9.7 mg/dL (8.5-10.1); CREATININE 1.4 mg/dL (0.7-1.3); GFR 50.9; POTASSIUM 3.8 mmol/L (3.5-5.1); TOTAL BILIRUBIN 0.3 mg/dL (0.2-1.0); TOTAL PROTEIN 7.6 g/dL (6.4-8.2)
[2017-11-28 12:13] LABS: BACTERIA,URINE 0 /HPF (0-FEW); BILIRUBIN,URINE NEG (NEG); CLARITY,URINE CLEAR; COLOR,URINE YELLOW; GLUCOSE,URINE 500 mg/dL (NEG); NITRITE,URINE NEG (NEG); SQUAMOUS EPITHELIAL CELL,UR OCC /LPF; UROBILINOGEN,URINE 0.2 mg/dL (0.2 mg/dL); WBC,URINE RARE /HPF (0-4)
--- NOTE | 2017-11-28 12:37 | EKG ---
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
--- NOTE | 2017-11-28 13:14 | RAD ---
LIMITED ABDOMINAL ULTRASOUND History: Right upper quadrant pain. Patient ate at 0800 hours. Comparison: None. Procedure: Transabdominal ultrasound images are obtained. Findings: Visualized pancreas is unremarkable. Liver is mildly increased in echogenicity. No focal hepatic masses are identified. Right hepatic lobe measures 18.4 cm in length. Gallbladder demonstrates cholelithiasis. Gallbladder sludge is also seen. No pericholecystic fluid is identified. Gallbladder wall is borderline thickened at 4 mm. Common bile duct measures normally at 4 mm in diameter. Right kidney measures 11.3 cm in length. There is no evidence of stone or hydronephrosis. Visualized IVC demonstrates normal caliber. Impression: 1. Cholelithiasis and gallbladder sludge. No pericholecystic fluid is identified. The gallbladder wall is borderline thickened, although this may be artifact of patient not being NPO. Significant concern for acute cholecystitis, nuclear medicine hepatobiliary scan could be performed. 2. Echogenic, enlarged liver, compatible with fatty liver disease. Electronically signed by: Дмитрий Lemon MD (11/28/2017 1:10 PM) [place] [id number]
[2017-11-28] MEDS ORDERED: PIPERACILLIN/TAZOBACTAM 3.375 GM VIAL IV ONE (13:58)
[2017-11-28] MEDS ORDERED: IV NORMAL SALINE 50ML 50 ML ONE (13:58)
[2017-11-28] MEDS ORDERED: PIPERACILLIN/TAZOBACTAM 3.375 GM in IV NORMAL SALINE 50ML 50 ML IV ONE (14:00)
[2017-11-28 16:04] VITALS: BP 163/91
--- NOTE | 2017-11-29 09:24 | CONS ---
DATE OF CONSULTATION: 11/28/2017 REASON FOR CONSULTATION: The patient was asked to be seen due to some atypical chest pain and nonspecific ST changes on EKG. HISTORY OF PRESENT ILLNESS: The patient is a pleasant 67-year-old man who recently underwent 3-vessel bypass who presented with pain in his right upper quadrant and right lower quadrant after eating. He has not had any exertional angina or dyspnea to note. He is recovering well from bypass. He has been going to cardiac rehab without any problems. On EKG, he was noted to have subtle nonspecific ST elevation in 3 and aVF without any obvious reciprocal changes. He had Q-waves in the inferior wall. Compared to his prior EKG, this is slightly different, but analogous to his postoperative EKG. PHYSICAL EXAMINATION: VITAL SIGNS: He was afebrile with stable vital signs. CARDIAC: Unremarkable. ABDOMEN: Soft, but mildly tender to deep palpation. LABORATORY DATA: Unremarkable for any acute cardiac pathology. Gallbladder ultrasound was suggestive of cholecystitis. IMPRESSION: 1. Noncardiac chest pain. 2. Known coronary artery disease, status post bypass. RECOMMENDATIONS: Discussed with ER physician in detail. At this present time, given lack of any cardiac symptoms, negative biomarkers, and an EKG that is similar to his postoperative EKG, we will plan to treat him conservatively from a cardiac perspective. Surgical plans as necessary. Thank you for this consultation. DARÍO MCCLAIN MD DR: BRANDON/roge JOB#: [id number] / [id number]
== END 2017-11-28 15:20 | disposition short-term general hospital (02) ==
LOC: ER 11:15
DX: K80.10 Calculus of gallbladder with chronic cholecystitis without obstruction (principal); R94.31 Abnormal electrocardiogram [ECG] [EKG]; E11.9 Type 2 diabetes mellitus without complications; E78.00 Pure hypercholesterolemia, unspecified; I10 Essential (primary) hypertension; I25.810 Atherosclerosis of coronary artery bypass graft(s) without angina pectoris; Z87.891 Personal history of nicotine dependence; Z95.1 Presence of aortocoronary bypass graft
CPT/HCPCS: 36415; 76705; 80053; 81001; 82553; 83690; 84484; 85025; 93005; 96365; 96375; 99285; J2405; J2543; J7030

== ENCOUNTER → 2020-07-12 | Outpatient (CLI) | payer MEDICARE, OTHER ==
[~2020-07-12] MED LIST changes: +LISI1TAB23 PO; -LISI1TAB3 PO; +METF-658 PO; -METF500T9 PO; +OMEP20CA16 PO; -OMEP20CA9 PO
--- NOTE | 2020-07-12 14:08 | CARD ---
MR#: [id number] Date of Study: 07/12/2020 Ordering Physician: DARÍO MCCLAIN, Referring Physician: DARÍO MCCLAIN, Tech: Serena Oconnell, [facility] APPROVED REPORT EXAM: Two-dimensional and M-mode echocardiogram with Doppler and color Doppler. Other Information Quality : AverageHR: 74bpm INDICATION Cardiac Disease: CAD Surgery/Intervention CABG: Date: 2016 RISK FACTORS Hypertension Diabetes 2D DIMENSIONS Left Atrium(2D)3.5 (1.6-4.0cm)IVSd1.1 (0.7-1.1cm) Aortic Root(2D)3.4 (2.0-3.7cm)LVDd4.6 (3.9-5.9cm) LVOT Diameter2.0 (1.8-2.4cm)PWd1.1 (0.7-1.1cm) LVDs3.5 (2.5-4.0cm)FS (%) 23.6 % SV46.1 mlLVEF(%)47.3 (>50%) Aortic Valve AoV Peak Jose A.144.9cm/sAoV VTI29.3cm AO Peak GR.8.4mmHgLVOT Peak Jose A.84.3cm/s LVOT VTI 21.61cmAO Mean GR.5mmHg JACKIE (VMAX)1.60et2SPO (VTI)2.39cm2 AI P 1/2 Pfci481oe Mitral Valve MV E Fjkxgfdq42.3cm/sMV DECEL GGKR680gc MV A Kbykhbkd42.1cm/sE/A Ratio0.9 Pulmonary Valve PV Peak Lrzwbauk22.5cm/sPV Peak Grad.3mmHg Tricuspid Valve TR P. Elrjqixd563pr/sRAP THNKPPYD1xrWf TR Peak Gr.11bxSiEDGY51vpNm LEFT VENTRICLE The left ventricle is normal size. There is mild concentric left ventricular hypertrophy. Basal infer ior wall hypokinesis. The Ejection Fraction is 40-55%. Transmitral Doppler flow pattern is Grade II-p seudonormal filling dynamics. RIGHT VENTRICLE The right ventricle is normal size. There is normal right ventricular wall thickness. The right ventr icular systolic function is normal. ATRIA The left atrium size is normal. The right atrium size is normal. The interatrial septum is intact wit h no evidence for an atrial septal defect or patent foramen ovale as noted on 2-D or Doppler imaging. AORTIC VALVE The aortic valve is normal in structure and function. Doppler and Color Flow revealed trace aortic re gurgitation. There is no significant aortic valvular stenosis. Calculated aortic valve area is 2.5 cm 2 with maximum pressure gradient of 9 mmHg and mean pressure gradient of 5 mmHg. MITRAL VALVE The mitral valve is normal in structure and function. There is no evidence of mitral valve prolapse. There is no mitral valve stenosis. Doppler and Color Flow revealed no mitral valve regurgitation note d. TRICUSPID VALVE The tricuspid valve is normal in structure and function. Doppler and Color Flow revealed trace tricus pid regurgitation with an estimated PAP of 29 mmHg. There is no tricuspid valve stenosis. PULMONIC VALVE The pulmonic valve is not well visualized. Doppler and Color Flow revealed trace pulmonic valvular re gurgitation. GREAT VESSELS The aortic root is normal in size. The ascending aorta is normal in size. The IVC is normal in size a nd collapses >50% with inspiration. PERICARDIAL EFFUSION There is no evidence of significant pericardial effusion. Critical Notification Critical Value: No <Conclusion> Basal inferior wall hypokinesis. The Ejection Fraction is 40-55%. Transmitral Doppler flow pattern is Grade II-pseudonormal filling dynamics. Trace tricuspid regurgitation with an estimated PAP of 29 mmHg. There is no evidence of significant pericardial effusion. Signed by : Diego Lang, Electronically Approved : 07/12/2020 14:08:12
== END ==
LOC: ECHO 09:43
PROVIDERS: ATTEND Internal Medicine Cardiovascular Disease
DX: I11.9 Hypertensive heart disease without heart failure (principal); I25.10 Atherosclerotic heart disease of native coronary artery without angina pectoris
CPT/HCPCS: 93306

== ENCOUNTER → 2020-11-11 | Outpatient (CLI) | payer MEDICARE, OTHER ==
[2020-11-05 07:55] VITALS: BP 154/92
[~2020-11-11] MED LIST changes: +AMLO5TAB4 PO; +ASPI325T8 PO; +GLIP10TA24 PO; +METO25TA4 PO; +OMEP20TA63 PO
--- NOTE | 2020-11-11 13:28 | RAD ---
PQRS Compliance Statement: One or more of the following individualized dose reduction techniques were utilized for this examinat ion: 1. Automated exposure control 2. Adjustment of the mA and/or kV according to patient size 3. Use of iterative reconstruction technique Exam performed: CT scan of the abdomen and pelvis without contrast. Clinical Indication: Reason: GROSS HEMATURIA, DYSURIA / Spl. Instructions: / History: Date of Service: 11/11/2020 12:53 PM. Comparison: Limited abdominal U 2017 Technique: Contiguous helical acquisitions are obtained through the abdomen and pelvis without IV con trast. Sagittal and coronal reformatted images are obtained and reviewed. CT abdomen and pelvis findings: Nodular parenchymal opacities are seen in the right lung base. The left lung base is clear. Visualize d heart is normal. There is a moderate-sized hiatal hernia. Lack of IV contrast limits evaluation of abdominal viscera, however the liver, spleen and pancreas ar e normal. Cholecystectomy. Both adrenal glands and bilateral kidneys are normal in size without hydro nephrosis or nephrolithiasis. Aorta is normal in caliber with diffuse atheromatous calcification, wit hout aneurysm. Small and large bowel loops are normal. The visualized portion of the appendix is unre markable. No inflammatory changes seen in the right lower quadrant Distal ureters are nondilated. Prostatomegaly with impression of the enlarged prostate in the posteri or aspect of the urinary bladder. Seminal vesicles are normal. Impression: Nodular airspace opacities in the right lung base. Etiology unknown. Infectious/inflammatory etiolog y may be considered, however nodules secondary to metastasis not excluded. Further evaluation with a dedicated CT scan of the chest may be obtained for further evaluation Prostatomegaly. Electronically signed by: Kathi Garcia MD (11/11/2020 1:26 PM) [facility]
== END ==
LOC: CT 12:40
PROVIDERS: ATTEND Physician Assistant
DX: R91.8 Other nonspecific abnormal finding of lung field (principal); R30.0 Dysuria; R31.0 Gross hematuria
CPT/HCPCS: 74176

== ENCOUNTER → 2020-11-16 | Outpatient (CLI) | payer MEDICARE, OTHER ==
[2020-11-05 07:55] VITALS: BP 154/92
[~2020-11-16] MED LIST changes: +IOHEXOL 300 MG/ML 75 ML VIAL. IV ONE
--- NOTE | 2020-11-16 09:53 | RAD ---
PQRS Compliance Statement: One or more of the following individualized dose reduction techniques were utilized for this examinat ion: 1. Automated exposure control 2. Adjustment of the mA and/or kV according to patient size 3. Use of iterative reconstruction technique CT THORAX W 11/16/2020 8:19 AM Indication: Incidental lung nodule COMPARISON: CT abdomen/pelvis 11/11/2020 TECHNIQUE: Multiple axial CT images of the chest were obtained without intravenous contrast. Coronal and sagittal reformats are provided. FINDINGS: Subpleural nodular areas of consolidation are identified within the posterior basal segment right low er lobe with additional tree-in-bud nodular airspace disease scattered throughout the right lower lob e. Findings favor a pneumonitis of infectious/inflammatory etiology. No pleural effusions, pulmonary vascular congestion or pneumothorax. Lungs are otherwise clear. Mild bronchial wall thickening compat ible with nonspecific bronchitis. Thyroid gland is normal in appearance. Precarinal lymph node has no rmal fatty hilum measuring 9 mm by short axis. Subcarinal lymph node measures 11 mm. Calcified medias tinal lymph nodes are present. Few borderline right hilar lymph nodes are present. Small hiatal herni a. Diffuse hepatic steatosis. Cholecystectomy. Calcifications within the spleen represent sequela marianne or granulomatous exposure. Visualized kidneys are normal. No suspicious osseous abnormality is identi fied. Median sternotomy changes are present. IMPRESSION: Patchy consolidative changes are identified predominantly involving the posterior basal segment right lower lobe compatible with pneumonia. Tree-in-bud nodular airspace disease throughout the right lowe r lobe favors pneumonitis of infectious/inflammatory etiology. Recommend follow-up to resolution to e xclude underlying neoplastic process. Borderline right hilar lymphadenopathy, likely reactive. Attention on follow-up exams is recommended. Electronically signed by: Isabel Rodriguez MD (11/16/2020 9:51 AM) [id number]
== END ==
LOC: CT 08:14
PROVIDERS: ATTEND Physician Assistant
DX: J92.9 Pleural plaque without asbestos (principal); D73.89 Other diseases of spleen; R91.1 Solitary pulmonary nodule; K76.0 Fatty (change of) liver, not elsewhere classified; K44.9 Diaphragmatic hernia without obstruction or gangrene
CPT/HCPCS: 71260; Q9967